=== PATIENT | female | born 1970 | race Two or more races ===

== ENCOUNTER 2023-04-28 14:58 | Emergency (ER) | payer MEDICAID, OTHER ==
[~2023-04-28] VITALS: Ht 152.4 cm; Wt 56.1 kg
[2023-04-28] MEDS ORDERED: PHENAZOPYRIDINE HCL 100 MG TAB PO ONE (16:45)
[2023-04-28] MEDS ORDERED: cefTRIAXone 1GM/50ML D5W 50 ML IV ONE (16:45)
[2023-04-28 16:46] VITALS: BP 135/77; PULSE 71; RESP 16; TEMP 98.3; O2SAT 96
[2023-04-28] MEDS ORDERED: cefTRIAXone SOD 1,000 MG VL IM ONE (17:00)
[2023-04-28 17:02] LABS: Urine Bacteria NONE SEEN /hpf (None Seen); Urine Blood TRACE /uL (Negative); Urine Clarity HAZY (Clear); Urine Color Yellow (Yellow); Urine Mucus FEW (None Seen); Urine Protein, UAD TRACE (Negative); Urine Urobilinogen Normal (Negative); Urine WBC 123 /hpf (0 - 5)
[2023-04-28] MEDS ORDERED: BACDST PO (17:37)
[2023-04-28] MEDS ORDERED: PHEN-922 PO (17:37)
== END 2023-04-28 17:40 | disposition home or self-care (01) ==
LOC: ER 14:58
DX: N39.0 Urinary tract infection, site not specified (principal); Z79.899 Other long term (current) drug therapy
CPT/HCPCS: 81001; 81002; 96372; 99283; J0696